=== PATIENT | female | born 1985 | race Caucasian/White ===

== ENCOUNTER 2016-08-31 20:00 | Emergency (ER) | payer SELFPAY ==
[~2016-08-31] VITALS: Ht 157.5 cm; Wt 83.5 kg
[~2016-08-31 20:00] MED LIST: LAMO200T2; LEVE250T18; PHEN100C70
[2016-09-01] MEDS ORDERED: ONDANSETRON HCL 4 MG/2 ML VIAL ONE (03:24)
[2016-09-01] MEDS ORDERED: HYDROmorphone HCL 2 MG/ML VL ONE (03:24)
[2016-09-01 04:26] VITALS: BP 99/59
[2016-09-01 05:14] LABS: Urine RBC None Seen /hpf (0 - 4)
[2016-09-01 06:05] LABS: Basophils # (auto) 0 uL; Basophils % (auto) 0.3 % (0.0-2.0); Eosinophils # (auto) 0.2 uL; Eosinophils % (auto) 2.8 % (0.0-7.0); Hematocrit 44.1 % (36.0-46.0); Hemoglobin 14.8 g/dL (12.2-16.2); Lymphocytes # (auto) 2.3 uL; Lymphocytes % (auto) 30.1 % (10.0-50.0); Mean Corpuscular Hemoglobin 32.6 pg (28.0-32.0); Mean Corpuscular Hgb Conc. 33.6 g/dL (32.0-36.0); Mean Corpuscular Volume 97.1 fL (80.0-100.0); Mean Platelet Volume 9.7 fL (7.4-10.4); Monocytes # (auto) 0.4 uL; Neutrophils # (auto) 4.5 uL; Neutrophils % (auto) 60.8 % (37.0-80.0); Platelet Count (auto) 193 10^3/uL (140-450); Red Cell Distribution Width 12.9 % (11.6-16.0); White Blood Cell 7.5 10^3/uL (4.4-10.8)
[2016-09-01 06:05] LABS: Urine Color Yellow (Yellow); Urine Glucose Normal (Normal)
[2016-09-01 06:06] LABS: Urine Bilirubin Negative (Negative); Urine Blood Negative /uL (Negative); Urine Ketone 1+ (Negative); Urine Mucus FEW (None Seen); Urine Nitrite Negative (Negative); Urine Squamous Epithelial Cell FEW /hpf (<5); Urine Urobilinogen Normal (Negative); Urine pH 5.5 (5.0-8.0)
[2016-09-01 06:07] LABS: BUN/Creatinine Ratio 15.6; Potassium 3.6 mmol/L (3.5-5.1)
[2016-09-01 06:08] LABS: Albumin 3.9 g/dL (3.4-5.0); Bilirubin, Total 1.1 mg/dL (0.2-1.0); Calcium 8.3 mg/dL (8.5-10.1); Total Protein 6.9 g/dL (6.4-8.2)
== END 2016-09-01 05:57 | disposition home or self-care (01) ==
LOC: ER 20:08
DX: R10.33 Periumbilical pain (principal); K59.00 Constipation, unspecified; R30.0 Dysuria; F17.210 Nicotine dependence, cigarettes, uncomplicated; F12.10 Cannabis abuse, uncomplicated; R11.2 Nausea with vomiting, unspecified; Z88.6 Allergy status to analgesic agent; Z91.040 Latex allergy status
CPT/HCPCS: 36415; 74176; 80053; 81001; 81025; 85025; 99285; J1170; J2405